=== PATIENT | male | born 1990 | race African-American/Black ===

== ENCOUNTER 2016-08-26 14:00 | Emergency (ER) | payer OTHER ==
[~2016-08-26] VITALS: Ht 195.6 cm; Wt 109.0 kg
[2016-08-26 14:08] VITALS: BP 120/61
== END 2016-08-26 17:15 | disposition home or self-care (01) ==
LOC: ER 16:11
DX: M79.641 Pain in right hand (principal); F17.210 Nicotine dependence, cigarettes, uncomplicated; W22.09XA Striking against other stationary object, initial encounter; Y93.89 Activity, other specified; Y92.89 Other specified places as the place of occurrence of the external cause
CPT/HCPCS: 73130; 99284